=== PATIENT | male | born 1995 | race Caucasian/White ===

== ENCOUNTER 2018-06-14 02:00 | Emergency (ER) | payer OTHER ==
[2018-06-14 02:10] VITALS: PULSE 70; BMI 31.1
[2018-06-14] MEDS ORDERED: METHOCARBAMOL 500 MG TABLET PO ONE (02:19)
[2018-06-14] MEDS ORDERED: IBUPROFEN 400 MG TABLET (FP) PO ONE ×2 (02:19→02:26)
[2018-06-14] MEDS ORDERED: METHOCARBAMOL 500 MG TABLET ONE (02:26)
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
[2018-06-14 04:44] VITALS: BP 141/78; TEMP 97.9
== END 2018-06-14 04:44 | disposition home or self-care (01) ==
LOC: JER 02:00
DX: S13.4XXA Sprain of ligaments of cervical spine, initial encounter (principal); V43.62XA Car passenger injured in collision with other type car in traffic accident, initial encounter; Y93.89 Activity, other specified; Y92.9 Unspecified place or not applicable
CPT/HCPCS: 99281-25